=== PATIENT | male | born 1995 | race Hispanic/Latino ===

== ENCOUNTER 2023-09-01 11:31 | Day surgery (SDC) | payer BC ==
[2023-08-31 09:29] VITALS: BMI 45.0
[2023-09-01] MEDS ORDERED: Glycopyrrolate 0.2 MG/ML 5 ML SYRINGE ONE (12:02)
[2023-09-01] MEDS ORDERED: PROPOFOL 20 ML ONE ×3 (12:02→12:36)
== END 2023-09-01 13:30 | disposition home or self-care (01) ==
LOC: CSHSDC 11:31
PROVIDERS: ATTEND Internal Medicine Gastroenterology
PROC: 0DJD8ZZ Inspection of Lower Intestinal Tract, Via Natural or Artificial Opening Endoscopic (ICD-10-PCS; principal; 2023-09-01)
DX: K57.30 Diverticulosis of large intestine without perforation or abscess without bleeding (principal); K64.8 Other hemorrhoids; E66.9 Obesity, unspecified; Z68.43 Body mass index [BMI] 50.0-59.9, adult
CPT/HCPCS: J2704